=== PATIENT | male | born 2000 | race Caucasian/White ===

== ENCOUNTER 2021-11-03 00:11 | Emergency (ER) | payer SELFPAY ==
[~2021-11-03] VITALS: Ht 170.2 cm; Wt 61.2 kg
[2021-11-03] MEDS ORDERED: KETOROLAC TROMETHAMINE 30 MG/ML VIAL IM STA (00:31)
[2021-11-03] MEDS ORDERED: SODIUM CHLORIDE 0.9% 1000ML 1,000 ML IV STA (00:39)
[2021-11-03] MEDS ORDERED: DIPHTH/TETANUS/ACEL. PERTUSSIS 0.5 ML SYR IM ONE (00:45)
[2021-11-03] MEDS ORDERED: ACETAMINOPHEN 325 MG TAB PO ONE (00:45)
[2021-11-03 01:07] LABS: BASOPHILS # (AUTO) 0.1 (0.0-0.1); BASOPHILS % 0.8 % (0.0-1.0); EOSINOPHILS # (AUTO) 0.3 (0.0-0.4); EOSINOPHILS % 3.5 % (0.0-6.0); HEMATOCRIT 43.1 % (38.2-49.6); HEMOGLOBIN 14.5 g/dL (14.0-18.0); LYMPHOCYTES # (AUTO) 2.9 (1.0-3.2); LYMPHOCYTES % 31.8 % (18.0-39.1); MEAN CORPUSCULAR HEMOGLOBIN 31.4 pg (28-32); MEAN CORPUSCULAR HGB CONC 33.6 g/dL (31-35); MEAN CORPUSCULAR VOLUME 93.3 fL (81-99); MONOCYTES # (AUTO) 0.7 (0.2-0.8); MONOCYTES % 8.1 % (4.4-11.3); NEUTROPHILS # (AUTO) 5.1 (2.1-6.9); NEUTROPHILS % 55.6 % (38.7-80.0); PLATELET COUNT 277 x10e3/uL (140-360); RED BLOOD COUNT 4.62 x10e6/uL (4.3-5.7); RED CELL DISTRIBUTION WIDTH 11.9 % (11.7-14.4)
[2021-11-03 01:14] LABS: INR 1.18
[2021-11-03 01:15] LABS: PARTIAL THROMBOPLASTIN TIME 28.9 seconds (23.8-35.5)
[2021-11-03 01:24] LABS: ALBUMIN 4.3 g/dL (3.5-5.0); ALBUMIN/GLOBULIN RATIO 1.5 (0.8-2.0); ANION GAP 14.3 mmol/L (8-16); CALCIUM 8.8 mg/dL (8.4-10.2); CREATININE, SERUM 1.02 mg/dL (0.72-1.25); POTASSIUM 3.3 mmol/L (3.5-5.1)
[2021-11-03] MEDS ORDERED: TETANUS/DIPHTHERIA TOX ADULT 0.5 ML SYR ONE (02:45)
== END 2021-11-03 04:16 | disposition home or self-care (01) ==
LOC: ER 00:17
DX: T63.001A Toxic effect of unspecified snake venom, accidental (unintentional), initial encounter (principal); R50.9 Fever, unspecified; K21.9 Gastro-esophageal reflux disease without esophagitis; F90.9 Attention-deficit hyperactivity disorder, unspecified type
CPT/HCPCS: 36415; 80053; 85025; 85384; 85610; 85730; 90471; 90714; 99284; J7030

== ENCOUNTER 2021-12-28 09:34 | Emergency (ER) | payer OTHER ==
[~2021-12-28] VITALS: Ht 170.2 cm; Wt 61.2 kg
[2021-12-28] MEDS ORDERED: KETOROLAC TROMETHAMINE 60 MG/2 ML VIAL IM ONE (10:00)
[2021-12-28] MEDS ORDERED: DIAZEPAM 5 MG TAB PO ONE (10:00)
== END 2021-12-28 11:38 | disposition home or self-care (01) ==
LOC: ER 09:40
DX: M25.512 Pain in left shoulder (principal); M62.838 Other muscle spasm; K21.9 Gastro-esophageal reflux disease without esophagitis; F90.9 Attention-deficit hyperactivity disorder, unspecified type; F17.210 Nicotine dependence, cigarettes, uncomplicated
CPT/HCPCS: 71045; 99283; J1885